=== PATIENT | male | born 1985 | race Caucasian/White ===

== ENCOUNTER 2017-06-20 18:03 | Emergency (ER) | payer SELFPAY ==
[2017-06-20] MEDS ORDERED: Acetaminophen/HYDROcodone 325-7.5 MG Tab PO ONE (19:38)
[2017-06-20] MEDS ORDERED: Lidocaine 2% Viscous Solution 15 ML Cup PO ONE (19:38)
[2017-06-20] MEDS ORDERED: Benzocaine 20% Topical Spray UD MUCMEM ONE (19:38)
--- NOTE | 2017-06-20 19:43 | EDM.PDOC ---
ED HPI GENERAL MEDICAL PROBLEM - General Chief Complaint: General Stated Complaint: TOOTH PAIN Time Seen by Provider: 06/20/17 19:31 - History of Present Illness INITIAL COMMENTS - FREE TEXT/NARRATIVE: HISTORY AND PHYSICAL: History of present illness: The patient is a 30-year-old male with a known history of dental issues who has been seen at [facility] in the past for same and was placed on antibiotics which he is still taking and presents with persistent pain at the same tooth. He says he does not went to see a local dentist and wants to wait to go home to [place] and 11 days and have the tooth pulled by his regular dentist. He is here because of the persistent pain but has not had any new swelling or new symptoms. He has no systemic complaints. Review of systems: As per history of present illness and below otherwise all systems reviewed and negative. Past medical history: As per history of present illness and as reviewed below otherwise noncontributory. Surgical history: As per history of present illness and as reviewed below otherwise noncontributory. Social history: No reported history of drug or alcohol abuse. Family history: As per history of present illness and as reviewed below otherwise noncontributory. Physical exam: Gen.: Well-developed well-nourished man who is no visible facial swelling and vital signs are noted by me. He is nontoxic HEENT: Atraumatic, normocephalic, pupils reactive, negative for conjunctival pallor or scleral icterus, mucous membranes moist, throat clear, neck supple, nontender, trachea midline. There are multiple missing teeth in the premolar molar areas throughout and on the right upper premolar there is a cracked tooth with surrounding edema but no fluctuance and gross tenderness in this region. There is no cervical adenopathy or nuchal rigidity Lungs: Clear to auscultation, breath sounds equal bilaterally, chest nontender. Heart: S1S2, regular rate and rhythm no overt murmurs Abdomen: Soft, nondistended, nontender. NABS Pelvis: Deferred Genitourinary: Deferred. Rectal: Deferred. Extremities: Atraumatic, range of motion without defects or deficits Neurovascular unremarkable. Neuro: Awake, alert, oriented. Cranial nerves II through XII unremarkable. Cerebellum unremarkable. Motor and sensory unremarkable throughout. Exam nonfocal. Diagnostics: [] Therapeutics: Dental balls, Fortuna 1 Impression: Dental pain/dental infection on antibiotics stable Definitive disposition and diagnosis as appropriate pending reevaluation and review of above. Dental Pain Score (Numeric/FACES): 10 - Related Data Allergies Allergy/AdvReac Type Severity Reaction Status Date / Time diphenhydramine Allergy Rash Verified 06/20/17 18:56 [From Benadryl] ketorolac [From Toradol] Allergy Other Verified 06/20/17 18:56 Home Meds: Home Meds . [No Known Home Meds] 06/20/17 [History] Past Medical History HEENT History: Reports: Other (See Below) Other HEENT History: dental issues Genitourinary History: Reports: Other (See Below) Other Genitourinary History: kidney failure Social & Family History - Family History Family Medical History: Noncontributory - Tobacco Use Smoking Status *Q: Current Every Day Smoker Years of Tobacco use: 20 Packs/Tins Daily: 1 - Caffeine Use Caffeine Use: Reports: Energy Drinks, Soda - Recreational Drug Use Recreational Drug Use: No Other Recreational Drug Type: 9 years ago did drugs-on a medication now like suboxin ED ROS GENERAL - Review of Systems Review Of Systems: ROS reveals no pertinent complaints other than HPI. ED EXAM, GENERAL - Physical Exam Exam: See Below (See dictation) Course - Vital Signs Last Recorded V/S: Last Vital Signs Temp 36.6 C 06/20/17 18:57 Pulse 82 06/20/17 18:57 Resp 20 06/20/17 18:57 BP 138/78 06/20/17 18:57 Pulse Ox 97 06/20/17 18:57 - Orders/Labs/Meds Orders: Active Orders 24 hr Category Date Time Status Acetaminophen/HYDROcodone [Fortuna 325-7.5 MG] Med 06/20/17 19:38 Once 1 tab PO ONETIME ONE Benzocaine [Hurricaine One 20%] Med 06/20/17 19:38 Once 2 each MUCMEM ONETIME ONE Lidocaine 2% [Xylocaine 2% Viscous] Med 06/20/17 19:38 Once 15 ml PO ONETIME ONE Medication Orders Hydrocodone Bitart/Acetaminophen (Fortuna 325-7.5 Mg) 1 tab PO ONETIME ONE Stop: 06/20/17 19:39 Benzocaine (Hurricaine One 20%) 2 each MUCMEM ONETIME ONE Stop: 06/20/17 19:39 Lidocaine HCl (Xylocaine 2% Viscous) 15 ml PO ONETIME ONE Stop: 06/20/17 19:39 Meds: Medications Generic Name Dose Route Start Last Admin Trade Name Lexi PRN Reason Stop Dose Admin Hydrocodone Bitart/Acetaminophen 1 tab 06/20/17 19:38 Fortuna 325-7.5 Mg PO 06/20/17 19:39 ONETIME ONE Benzocaine 2 each 06/20/17 19:38 Hurricaine One 20% MUCMEM 06/20/17 19:39 ONETIME ONE Lidocaine HCl 15 ml 06/20/17 19:38 Xylocaine 2% Viscous PO 06/20/17 19:39 ONETIME ONE Departure - Departure Time of Disposition: 19:42 Disposition: Home, Self-Care 01 Condition: Good Clinical Impression: Pain, dental - Discharge Information Referrals: PCP,None [Primary Care Provider] - Additional Instructions: The following information is given to patients seen in the emergency department who are being discharged to home. This information is to outline your options for follow-up care. We provide all patients seen in our emergency department with a follow-up referral. The need for follow-up, as well as the timing and circumstances, are variable depending upon the specifics of your emergency department visit. If you don't have a primary care physician on staff, we will provide you with a referral. We always advise you to contact your personal physician following an emergency department visit to inform them of the circumstance of the visit and for follow-up with them and/or the need for any referrals to a consulting specialist. The emergency department will also refer you to a specialist when appropriate. This referral assures that you have the opportunity for followup care with a specialist. All of these measure are taken in an effort to provide you with optimal care, which includes your followup. Under all circumstances we always encourage you to contact your private physician who remains a resource for coordinating your care. When calling for followup care, please make the office aware that this follow-up is from your recent emergency room visit. If for any reason you are refused follow-up, please contact the [facility] emergency department at and ask to speak to the emergency department charge nurse. [facility] Primary care- Internal Medicine and Family [address] [address] Use ice to face for any swelling and continue the antibodies that you're on until they're finished. Use dental balls you have been given today as shown. Continue to use [id number] ibuprofen and Tylenol as needed but please take this per the package direction and did not take excess. Please connect with a local dentist or your dentist at home for definitive care and treatment and return to ER as needed and as discussed - My Orders Last 24 Hours: My Active Orders 06/20/17 19:38 Acetaminophen/HYDROcodone [Fortuna 325-7.5 MG] 1 tab PO ONETIME ONE Benzocaine [Hurricaine One 20%] 2 each MUCMEM ONETIME ONE Lidocaine 2% [Xylocaine 2% Viscous] 15 ml PO ONETIME ONE - Assessment/Plan Last 24 Hours: My Active Orders 06/20/17 19:38 Acetaminophen/HYDROcodone [Fortuna 325-7.5 MG] 1 tab PO ONETIME ONE Benzocaine [Hurricaine One 20%] 2 each MUCMEM ONETIME ONE Lidocaine 2% [Xylocaine 2% Viscous] 15 ml PO ONETIME ONE
== END 2017-06-20 20:03 | disposition home or self-care (01) ==
LOC: MW.ED 18:03
DX: K04.7 Periapical abscess without sinus (principal); K03.81 Cracked tooth; F17.210 Nicotine dependence, cigarettes, uncomplicated; Z88.6 Allergy status to analgesic agent; Z88.8 Allergy status to other drugs, medicaments and biological substances
CPT/HCPCS: 99282; A9270; 99283